=== PATIENT | female | born 1990 | race American Indian/Alaskan Native ===

== ENCOUNTER 2017-07-13 16:11 | Emergency (ER) | payer SELFPAY ==
[2017-07-13 16:30] VITALS: BP 126/67
[2017-07-13] MEDS ORDERED: MOTRIN PO ONE (19:54)
--- NOTE | 2017-07-13 19:54 | Emergency Department Report ---
Minor Respiratory - HPI Chief Complaint: Earache Stated Complaint: RIGHT EAR PAIN Time Seen by Provider: 07/13/17 19:29 Duration: 1 week Pain Location: Ear Severity: moderate (5/10) Minor Respiratory: Yes Rhinorrhea (nasal congestion), Yes Able to Tolerate Fluids, Yes Ear Pain (bilateral ear pain with right ear drainage), No Sore Throat, No Cough, No Sick Contacts, No Hemoptysis, No Chest Pain, No Shortness of Breath, No Fever Other History: She reports that she's been having bilateral ear pain for greater than left over the last week. Reports drainage from right ear. Reports nasal congestion runny nose. No [id number] medication taken. Denies any nausea or vomiting. Denies any cough or difficulty breathing. Denies any fever or chills. Denies any trauma to ear. ED Review of Systems ROS: Stated complaint: RIGHT EAR PAIN Other details as noted in HPI Comment: All other systems reviewed and negative Constitutional: no symptoms reported Eyes: denies: eye pain, eye discharge ENT: ear pain, congestion. denies: throat pain, dental pain, hearing loss Respiratory: no symptoms reported Cardiovascular: denies: chest pain, palpitations, dyspnea on exertion, edema, syncope, paroxysmal nocturnal dyspnea Gastrointestinal: denies: abdominal pain, nausea, vomiting Musculoskeletal: denies: back pain, joint swelling, arthralgia, myalgia Skin: denies: rash Neurological: denies: headache ED Past Medical Hx - Past Medical History Previous Medical History?: No - Surgical History Past Surgical History?: Yes Additional Surgical History: - Family History Family history: no significant - Social History Smoking Status: Never Smoker Substance Use Type: Alcohol - Medications Home Medications: Home Medications Medication Instructions Recorded Confirmed Last Taken Type Amoxicillin/Potassium Clav 1 each PO Q12H 10 Days #20 tablet 07/13/17 Unknown Rx [Augmentin 875-125 Tablet] Cetirizine HCl [ZyrTEC] 10 mg PO QAM 14 Days #14 capsule 07/13/17 Unknown Rx Fluticasone [Flonase] 1 spray NS QDAY 14 Days #1 bottle 07/13/17 Unknown Rx Ibuprofen [Motrin] 600 mg PO Q8H PRN #12 tablet 07/13/17 Unknown Rx Minor Respiratory Exam - Exam General: Vital signs noted. No distress. Alert and acting appropriately. This is a 27-year-old female in the refill developed no acute distress HEENT: Yes Moist Mucous Membranes, Yes Rhinorrhea (nasal turbinates congested with clear drainage), No Pharyngeal Erythema, No Pharyngeal Exudates, No Conjuctival Injection, No Frontal Tenderness Ear: Right TM Erythema, Right EAC Pain, Right EAC Discharge (minimal drainage with EAC swelling and tenderness erythema), Neither TM Bulge (bilateral TM congested) Neck: Yes Supple (no C-spine tenderness,), No Adenopathy Lungs: Yes Good Air Exchange, No Wheezes, No Ronchi, No Stridor, No Cough, No Labored Respirations, No Retractions, No Use of Accessory Muscles, No Other Abnormal Lung Sounds Heart: Yes Regular (S1-S2,), No Murmur Abdomen: Yes Normal Bowel Sounds, No Tenderness (nontender to palpation in all quadrants.), No Peritoneal Signs Skin: No Rash, No Edema Neurologic: Alert and oriented 3, no deficits. Musculoskeletal: Unremarkable. Extremity: No clubbing , cyanosis or edema. Positive pulses in all extremities. ED Course Vital Signs 07/13/17 16:28 Temperature 98.7 F Pulse Rate 90 Respiratory 16 Rate Blood Pressure 126/67 O2 Sat by Pulse 99 Oximetry - Reevaluation(s) Reevaluation #1: 07/13/17 20:01 Motrin 800 mg for bilateral ear pain ED Medical Decision Making - Medical Decision Making ED course:Pt complains of bilateral ear pain with drainage from right ear. Physical findings for right otitis externa and media. Upper respiratory tract infection. I discussed patient diagnosis, treatment and and need for follow- up. She voiced understanding. Patient does not have a primary care physician so will follow-up at [facility] in 2-3 days. Discharge home with prescription for Augmentin, Motrin, Flonase and Zyrtec Critical care attestation.: If time is entered above; I have spent that time in minutes in the direct care of this critically ill patient, excluding procedure time. ED Disposition Clinical Impression: URI, acute, Otalgia of both ears Otitis media of right ear Qualifiers: Otitis media type: unspecified Qualified Code(s): H66.91 - Otitis media, unspecified, right ear Otitis externa Qualifiers: Otitis externa type: unspecified type Chronicity: acute Laterality: right Qualified Code(s): H60.501 - Unspecified acute noninfective otitis externa, right ear Disposition: DC-01 TO HOME OR SELFCARE Is pt being admited?: No Does the pt Need Aspirin: No Condition: Stable Instructions: Otitis Media (ED), Otitis Externa (ED), Earache (ED), Upper Respiratory Infection (ED) Additional Instructions: Please increase fluid intake Flush nostrils with saline nasal spray take antibiotic as prescribed F/U with primary care physician as instructed and if he do not have primary care follow-up at this [facility] Prescriptions: Amoxicillin/Potassium Clav [Augmentin 875-125 Tablet] 1 each PO Q12H 10 Days # 20 tablet Cetirizine HCl [ZyrTEC] 10 mg PO QAM 14 Days #14 capsule Fluticasone [Flonase] 1 spray NS QDAY 14 Days #1 bottle Ibuprofen [Motrin] 600 mg PO Q8H PRN #12 tablet PRN Reason: Pain Referrals: [facility] [Outside] - 2-3 Days Forms: Work/School Release Form(ED)
== END 2017-07-13 20:30 | disposition home or self-care (01) ==
LOC: ED 16:11
DX: H66.91 Otitis media, unspecified, right ear (principal); H60.501 Unspecified acute noninfective otitis externa, right ear; J06.9 Acute upper respiratory infection, unspecified; H92.02 Otalgia, left ear
CPT/HCPCS: 99282